=== PATIENT | female | born 1985 | race Caucasian/White ===

== ENCOUNTER 2018-06-10 05:47 | Day surgery (SDC) | payer OTHER ==
[2018-06-10] MEDS ORDERED: LACTATED RINGERS 1,000 ML IV SCH (07:00)
[2018-06-10] MEDS ORDERED: DILAUDID IV PRN (07:05)
--- NOTE | 2018-06-10 07:06 | Anesthesia Consultation ---
Anesthesia Consult and Med Hx - Airway Anesthetic Teeth Evaluation: Good ROM Head & Neck: Adequate Mental/Hyoid Distance: Adequate Mallampati Class: Class II Intubation Access Assessment: Probably Good - Pulmonary Exam CTA: Yes - Cardiac Exam Cardiac Exam: RRR - Pre-Operative Health Status ASA Pre-Surgery Classification: ASA2 Proposed Anesthetic Plan: General - Pulmonary Hx Smoking: No Hx Asthma: No Hx Respiratory Symptoms: No SOB: No COPD: No Home Oxygen Therapy: No Hx Pneumonia: No - Cardiovascular System Hx Hypertension: No Hx Coronary Artery Disease: No Hx Heart Attack/AMI: No Hx Angina: No Hx Percutaneous Transluminal Coronary Angioplasty (PTCA): No Hx Cardia Arrhythmia: No Hx Pacemaker: No Hx Internal Defibrillator: No Hx Valvular Heart Disease: No Hx Heart Murmur: No - Central Nervous System Hx Psychiatric Problems: No - Other Systems Hx Cancer: No
--- NOTE | 2018-06-10 07:07 | Anesthesia Day of Surgery ---
Anesthesia Day of Surgery - Day of Surgery Patient Examined: Yes Patient H&P Reviewed: Yes Patient is NPO: Yes Beta Blockers: No Cardiac Clearance: No Pulmonary Clearance: No Donavan's Test: N/A
[2018-06-10] MEDS ORDERED: VERSED ONE (07:11)
[2018-06-10] MEDS ORDERED: PEPCID ONE (07:11)
[2018-06-10] MEDS ORDERED: NEURONTIN ONE (07:12)
[2018-06-10] MEDS ORDERED: PEPCID IV ONE (07:12)
[2018-06-10] MEDS ORDERED: ZEMURON IV ONE (07:15)
[2018-06-10] MEDS ORDERED: DILAUDID ONE (07:15)
[2018-06-10] MEDS ORDERED: XYLOCAINE MPF 2% ONE (07:15)
[2018-06-10] MEDS ORDERED: DIPRIVAN 10 MG/ML IV ONE (07:15)
--- NOTE | 2018-06-10 07:16 | Short Stay Summary ---
Short Stay Documentation Date of service: 06/10/18 Narrative H&P: 32y/o with findings of a left ovarian cyst measuring 7.2cm. The patient reports left lower quadrant pain. She elects for surgical management. - History Principal diagnosis: Left ovarian cyst Past Medical History: No medical history Past Surgical History: Social history: - Allergies and Medications Current Medications: Allergies No Known Allergies Allergy (Unverified 06/09/18 11:26) Home Medications Medication Instructions Recorded Confirmed Last Taken Type Ibuprofen 600 mg PO Q6H PRN 06/09/18 06/09/18 Unknown History Sulfamethoxazole/Trimethoprim 1 tab PO DAILY 06/09/18 06/09/18 Unknown History [Bactrim Ds Tablet] Active Medications Celecoxib (Celebrex) 200 mg PO PREOP NR Stop: 06/10/18 13:00 Gabapentin (Neurontin) 300 mg PO PREOP NR Stop: 06/10/18 15:00 Hydromorphone HCl (Dilaudid) 0.25 mg IV Q10MIN PRN PRN Reason: Pain, Moderate (4-6) Stop: 06/10/18 20:00 Lactated Ringer's (Lactated Ringers) 1,000 mls @ 75 mls/hr IV DIRECT ERIN Last Admin: 06/10/18 07:01 Dose: 75 mls/hr Documented by: - Physical exam General appearance: no acute distress Integumentary: no rash HEENT: Atraumatic Lungs: Clear to auscultation Breasts: deferred Heart: Regular rate Gastrointestinal: normal Female Genitourinary: deferred Rectal Exam: deferred Extremities: no ischemia - Brief post op/procedure progress note Date of procedure: 06/10/18 Pre-op diagnosis: left adnexal mass Post-op diagnosis: other (left endometrioma) Procedure: Laparoscopy Left ovarian cystectomy Anesthesia: GETA Surgeon: LACEY SINGH Estimated blood loss: minimal Pathology: list (ovarian cyst wall) Specimen disposition: to lab Condition: stable - Hospital course Hospital course: The patient was admitted the day of surgery underwent a laparoscopy and left ovarian cystectomy. Please see operative note for details of surgery. Posto perative course was uneventful. - Disposition Condition at discharge: Good Disposition: DC- TO HOME OR SELFCARE Short Stay Discharge Plan Activity: other (pelvic rest for 1 week) Diet: regular Additional Instructions: Schedule follow-up with Dr. Lorenz in 2 weeks Prescriptions: Ibuprofen [Motrin] 800 mg PO Q8HR PRN #60 tablet PRN Reason: Pain, Mild (1-3) oxyCODONE /ACETAMINOPHEN [Percocet 5/325] 1 tab PO Q6HR PRN #30 tablet PRN Reason: Pain
[2018-06-10] MEDS ORDERED: MARCAINE 0.5% INFILTRATI ONE ×2 (07:21→08:04)
[2018-06-10] MEDS ORDERED: NACL BACTERIOSTATIC INFILTRATI ONE (07:50)
[2018-06-10] MEDS ORDERED: NEURONTIN PO NR (08:00)
[2018-06-10] MEDS ORDERED: NACL 0.9% IR ONE ×2 (08:04→08:50)
[2018-06-10] MEDS ORDERED: TORADOL ONE (08:45)
[2018-06-10] MEDS ORDERED: ZOFRAN ONE ×2 (08:45→10:01)
[2018-06-10] MEDS ORDERED: BLOXIVERZ ONE (08:45)
[2018-06-10] MEDS ORDERED: ROBINUL ONE (08:45)
[2018-06-10] MEDS ORDERED: NACL 0.9% 1000 ML 1,000 ML ONE (09:05)
--- NOTE | 2018-06-10 09:06 | Operative Report ---
Operative Report Operative Report: Date of surgery: 06/10/2018 Preoperative diagnosis: Left adnexal mass Postoperative diagnosis: Same as above; left endometrioma; extensive endometriosis Procedure: Laparoscopy; left ovarian cystectomy; lysis of adhesions Surgeon: Sun Lorenz M.D. Anesthesia: General endotracheal anesthesia Estimated blood loss: Minimal Findings: an enlarged left ovary consistent with an endometrioma; multiple endometriotic implants; obliterated cul-de-sac Pathology: Ovarian cyst wall Indication: 32-year-old who presents with a history of a left adnexal mass and worsening pelvic pain. Pelvic ultrasound demonstrated findings of a 7.2 cm ovarian cyst. Procedure: The patient was taken to the operating room and given general endotracheal anesthesia without complication. The patient is prepped and draped in a normal sterile fashion. A bivalve speculum was placed in the patient's vagina and a sponge stick was placed and the bivalve speculum was then removed. Attention was then turned to the patient's abdomen where a 5 mm infraumbilical skin incision was then made. A Veress needle was placed and peritoneal entry was verified water-filled syringe. Insufflation of the peritoneal cavity was performed with CO2 gas. A 5 mm trocar was placed and the laparoscope was then inserted. The patient was then placed in Trendelenburg. A 5 mm suprapubic skin incision was then made. Under direct visualization a 5 mm trocar was then placed and in addition a 5 mm left trocar was also placed. General survey of the patient's abdomen revealed the left ovary was enlarged with findings of an endometrioma. The patient had findings of multiple endometriotic implants involving the peritoneum. The left fallopian tube was enlarged likely consistent with a hydrosalpinx. The posterior cul-de-sac was obliterated secondary to the endometriosis. The right fallopian tube and right ovary were normal in appearance. An omental adhesion to the anterior abdominal wall was lysed with the monopolar scissors. The ovarian cortex of the left ovary was grasped and a cystotomy was created in the ovarian cysts with findings of a chocolate cyst appearing fluid. Copious irrigation of the ovarian cyst was performed. The cystotomy incision was extended with the monopolar scissors. The cyst wall was grasped with the Eloisa forcep and grasper which was then dissected from the ovarian cortex. The cyst wall was adherent to the cortex. The complete cyst wall could not be adequately removed. The tissue was again copiously irrigated. Viv was placed on the surgical sites. The 5 mm trocars were then removed. The pneumoperitoneum was then released. The 5 mm trocar laparoscope was then removed. The skin incisions were then closed with 4-0 Monocryl. The incisions were injected with quarter percent Marcaine. Dressings were applied to the incision. The vaginal instruments were then removed a traumatically. Then successfully extubated and taken to the recovery room. All sponge laps and needle counts were correct 2.
--- NOTE | 2018-06-10 09:25 | XRay Report ---
KUB: Foreign body. Operative KUB for evaluation of retained sponge. No evidence of foreign body retention is identified in the abdomen. Minimal dilatation of central small bowel loops is noted with no other significant finding. Impression: No foreign body identified.
[2018-06-10] MEDS ORDERED: ZOFRAN IV NR (10:00)
[2018-06-10 10:24] VITALS: BP 99/68
== END 2018-06-10 11:10 | disposition home or self-care (01) ==
LOC: OR 05:47
PROVIDERS: ATTEND Obstetrics & Gynecology
DX: N83.202 Unspecified ovarian cyst, left side (principal); N80.9 Endometriosis, unspecified; Z79.899 Other long term (current) drug therapy; Z98.891 History of uterine scar from previous surgery; Z98.890 Other specified postprocedural states; Z87.440 Personal history of urinary (tract) infections
CPT/HCPCS: 58662; 74018; 81025; 88305; A4217; J1170; J1885; J2250; J2405; J2704; J2710; J7030; J7120